=== PATIENT | female | born 1975 | race Caucasian/White ===

== ENCOUNTER → 2018-01-11 | Outpatient (CLI) | payer OTHER | LOC: M WHC 14:29 | DX: Z12.31 Encounter for screening mammogram for malignant neoplasm of breast (principal); N60.31 Fibrosclerosis of right breast; N60.32 Fibrosclerosis of left breast | CPT/HCPCS: 77067 ==

== ENCOUNTER → 2020-02-24 | Outpatient (CLI) | payer BC ==
[~2020-02-24] MED LIST: ANUS2.5C2 TOP; DOCU5LIQ PO; IBUP600T26 PO; MAPA500T17 PO; MOM30SS PO; PRENTAB66 PO
[2020-02-24 20:29] LABS: BLOOD UREA NITROGEN 15 MG/DL (7-18); CREATININE FOR GFR 0.77 MG/DL (0.55-1.30); GLOMERULAR FILTRATION RATE > 60.0 (>58)
== END ==
LOC: M WUC 16:11
PROVIDERS: ATTEND Nurse Practitioner Adult Health
DX: Z91.14 Patient's other noncompliance with medication regimen (principal)